=== PATIENT | female | born 1965 | race Caucasian/White ===

== ENCOUNTER 2017-01-29 23:47 | Emergency (ER) | payer OTHER, MEDICAID ==
[~2017-01-29] VITALS: Ht 170.2 cm; Wt 77.1 kg
[~2017-01-29 23:47] MED LIST: AMLO10TA PO; APIX5TAB PO; ATOR10TA PO; BUPR100T3 PO; QUET100T PO
[2017-01-29 23:49] VITALS: BP 133/89
--- NOTE | 2017-01-30 00:45 | NUR ---
TO [facility] FROM [facility]
--- NOTE | 2017-01-30 02:11 | NUR ---
Patient being evaluated by physician.
[2017-01-30] MEDS ORDERED: oxyCODONE/APAP 5/325 MG 1 TAB TAB PO ONE (02:20)
--- NOTE | 2017-01-30 02:23 | NUR ---
MOVED TO ER BED 7
--- NOTE | 2017-01-30 02:29 | NUR ---
52Y F BIBA TWIST LEFT ANKLE S/P WHILE EXITING FROM BUS. PT DENIES LOC, OR ANY HEAD TRAUMA, PT IS AAOX 4. BREATHING IS UNLABORED PAIN 03/11. PT STATES LEFT ANKLE MOTOR ROTATION PAIN BUT NO LOSS OF SENSATION. HX: BIPOLAR SCHIZOPHRENIA, HYPER LIPIDEMIA, AND DEPRESSION
--- NOTE | 2017-01-30 04:00 | NUR ---
Patient appears to be resting comfortably in bed. Vital Signs within normal limits. Respirations even and unlabored.
--- NOTE | 2017-01-30 05:10 | NUR ---
Patient appears to be resting comfortably in bed. Vital Signs within normal limits. Respirations even and unlabored.
[2017-01-30 06:31] VITALS: BP 130/75
--- NOTE | 2017-01-30 06:32 | NUR ---
Patient discharged with v/s stable. Written and verbal after care instructions given and explained. Patient alert, oriented and verbalized understanding of instructions. Ambulatory with steady gait. All questions addressed prior to discharge. ID band removed. Patient advised to follow up with PMD. Rx of MOTRIN 800 MG, NORCO 5/325MG given. Patient educated on indication of medication including possible reaction and side effects. Opportunity to ask questions provided and answered. LONG FOOT SPLINT APPLIED, AMBULATES USING CRUTCHES
== END 2017-01-30 06:15 | disposition home or self-care (01) ==
LOC: MED 23:47
CPT/HCPCS: 73610; 73630; 99284

== ENCOUNTER 2018-06-10 22:12 | Emergency (ER) | payer OTHER, MEDICAID ==
[~2018-06-10] VITALS: Ht 162.6 cm; Wt 83.9 kg
[2018-06-10 22:14] VITALS: BP 151/83
--- NOTE | 2018-06-10 22:40 | NUR ---
PATIENT LEFT WITHOUT BEING SEEN BY DR. PARISH. NO FURTHER CARE PROVIDED FOR PATIENT.
--- NOTE | 2018-06-10 22:40 | NUR ---
CALLED AT 2215/2225/2230. NO ANSWER AT THIS TIME.
== END 2018-06-10 22:30 | disposition left against medical advice (07) ==
LOC: MED 22:12
DX: R10.9 Unspecified abdominal pain (principal); Z53.21 Procedure and treatment not carried out due to patient leaving prior to being seen by health care provider

== ENCOUNTER 2021-04-06 02:46 | Emergency (ER) | payer OTHER, MEDICAID ==
[~2021-04-06] VITALS: Ht 162.6 cm; Wt 79.4 kg
--- NOTE | 2021-04-06 02:46 | NUR ---
PT ANABELLA BLS. TAKEN TO BED 3
--- NOTE | 2021-04-06 02:46 | NUR ---
56 f biba with c/c of r ankle pain sp fall. pt stated she was at bus stop and tripped stepping down the curb. pt states the outer lateral portion of foot is what hurts the most. pt has ankle twisted twrd body because it feels better that way. denies hitting head. pedal pulse strong/bilat. able to wiggle foot, difficulty walking d/t pain. pt stated she was just d/c from the [facility], was admitted for angina. hX: htn, hld, depression-noncomplaint with meds rx:metoprolol, norvasc, lipitor, aspirin, serquil allerg: pcn and buspirone
[2021-04-06 02:47] VITALS: BP 152/86
--- NOTE | 2021-04-06 03:15 | NUR ---
rad at bedside.
[2021-04-06] MEDS ORDERED: ACETAMINOPHEN EXTRA STRENGTH 500 MG TAB PO ONE (03:30)
--- NOTE | 2021-04-06 03:46 | NUR ---
provided with bedpan per request.
--- NOTE | 2021-04-06 03:52 | NUR ---
bed sheets changed and pt placed in a gown. accidently urinated on bed and clothes. new blanket provided.
--- NOTE | 2021-04-06 04:41 | NUR ---
pt is sleeping. equal rise and fall of chest wall, vss. opens eyes to sound. all needs met at this time. bed locked in lowest position, side railsx2.
[2021-04-06 05:25] VITALS: BP 138/79
--- NOTE | 2021-04-06 05:25 | NUR ---
Patient discharged with v/s stable. Written and verbal after care instructions given and explained. Patient verbalized understanding. Ambulatory with steady gait. All questions addressed prior to discharge. Advised to follow up with PMD.
== END 2021-04-06 05:25 | disposition home or self-care (01) ==
LOC: MED 02:46
DX: S93.402A Sprain of unspecified ligament of left ankle, initial encounter (principal); I10 Essential (primary) hypertension; Z88.1 Allergy status to other antibiotic agents; Z88.8 Allergy status to other drugs, medicaments and biological substances; Z79.899 Other long term (current) drug therapy; W19.XXXA Unspecified fall, initial encounter; Y93.89 Activity, other specified; Y92.89 Other specified places as the place of occurrence of the external cause; Y99.8 Other external cause status
CPT/HCPCS: 73610; 99283; Q0092

== ENCOUNTER 2024-02-10 19:08 | Emergency (ER) | payer BC, MEDICAID ==
[~2024-02-10] VITALS: Ht 162.6 cm; Wt 74.8 kg
[~2024-02-10 19:08] MED LIST changes: -APIX5TAB PO; +ASPI-1856 PO; -ATOR10TA PO; +ATOR40TA PO; +ISOS30TE68 PO; +NITR0.4T1 SL
[2024-02-10 19:26] VITALS: BP 175/83; PULSE 81; RESP 16; TEMP 98.5; O2SAT 99
[2024-02-10] MEDS: MORPHINE SULFATE 4 MG/ML SYR IM ONE (19:43)
[2024-02-10] MEDS: HYDROcodone/APAP 5/325 MG 1 TAB TAB PO ONE (19:57)
[2024-02-10] MEDS ORDERED: IBUP-2213 PO (20:39)
[2024-02-10] MEDS ORDERED: ACET-8905 PO (20:39)
[2024-02-10 20:46] VITALS: BP 152/80; PULSE 81; RESP 16; TEMP 98.5; O2SAT 99
== END 2024-02-10 20:46 | disposition home or self-care (01) ==
LOC: MED 19:08
DX: M54.50 Low back pain, unspecified (principal); Z90.89 Acquired absence of other organs; Z98.890 Other specified postprocedural states; I10 Essential (primary) hypertension; Z79.82 Long term (current) use of aspirin; Z79.899 Other long term (current) drug therapy; Z88.0 Allergy status to penicillin; Z88.8 Allergy status to other drugs, medicaments and biological substances
CPT/HCPCS: 81002; 99282; J2270

== ENCOUNTER 2024-02-25 00:05 | Emergency (ER) | payer BC, MEDICAID ==
[~2024-02-25] VITALS: Ht 162.6 cm; Wt 76.7 kg
[~2024-02-25 00:05] MED LIST changes: +ACET-8905 PO; +IBUP-2213 PO
[2024-02-25 00:10] VITALS: BP 160/88; PULSE 70; RESP 18; TEMP 96.2; O2SAT 100
[2024-02-25] MEDS: ACETAMINOPHEN EXTRA STRENGTH 500 MG TAB PO ONE (01:38)
[2024-02-25] MEDS: CYCLOBENZAPRINE 10 MG TAB PO ONE (01:38)
[2024-02-25] MEDS: KETOROLAC 30 MG/ML VIAL IM ONE (01:39)
[2024-02-25] MEDS ORDERED: CYCL-711 PO (02:15)
[2024-02-25] MEDS ORDERED: LID5T TP (02:15)
[2024-02-25 02:33] VITALS: BP 152/88; PULSE 72; RESP 18; TEMP 96.2; O2SAT 100
== END 2024-02-25 02:33 | disposition home or self-care (01) ==
LOC: MED 00:05
DX: M54.41 Lumbago with sciatica, right side (principal); I10 Essential (primary) hypertension; Z79.82 Long term (current) use of aspirin; Z79.899 Other long term (current) drug therapy; Z88.1 Allergy status to other antibiotic agents; Z88.8 Allergy status to other drugs, medicaments and biological substances
CPT/HCPCS: 99283; J1885